=== PATIENT | female | born 1960 | race Caucasian/White ===

== ENCOUNTER → 2019-01-20 | Outpatient (CLI) | payer BC, OTHER ==
--- NOTE | 2019-01-20 15:16 | EXE ---
[facility] [address] [place] [address] STRESS ECHOCARDIOGRAM Name: CAROLBRENNA Room #: REG IRMA Faulkner#: [id number] ������������� Admission: 01/20/19 ������������� Attend Phys: Elgin Nino Discharge: ��� ������������� ��� Date of : 62 Date of Service: 01/20/19 1516 �� Report #: [id number] �������� ��������������������������������������������[id number] THIS REPORT FOR: //name// APPROVED REPORT Study performed: 01/20/2019 11:26:42 Exam: Stress Echocardiogram Indication: Hypertension, Pre-Operative CV evaluation Patient Location: Out-Patient Stress Nurse: Lizzie WYMAN Room #: Echo lab 2 Status: routine Ht: 5 ft 2 in HR: 77 bpm BP: 142/96 mmHg Rhythm: NSR Medical History Medical History: Arrhythmia, HTN Cardiac Risk Factors: HTN, Tobacco History (Former), FHX of CAD Procedure The patient underwent an Exercise Stress Test using the Serge Protocol. Blood pressure, heart rate, and EKG were monitored. An Echocardiogram was performed by sterile supply technician in four stages in quad fashion. At peak stress, four selected images were obtained and placed side by side with resting images for comparison. Stress Test Details Stress Test: Exercise stress testing was performed using a Serge protocol. HR Resting HR: 77 bpm Max Heart Rate (APMHR): 163 bpm Max HR Achieved: 169 bpm Target HR (85% APMHR): 138 bpm % of APMHR: 103 Recovery HR: 102 bpm HR response to stress: Normal HR response to stress BP Resting BP: 142/96 mmHg Max BP: 182/96 mmHg Recovery BP: 138/78 mmHg BP response to stress: Normal blood pressure response to [facility] [address] [address] STRESS ECHOCARDIOGRAM Name: BRENNA MEDINA Room #: [id number] ������������� Admission: 01/20/19 ������������� Attend Phys: Elgin Nino Discharge: ��� ������������� ��� Date of : 62 Date of Service: 01/20/19 1516 �� Report #: [id number] �������� ��������������������������������������������[id number] stress. ECG Resting ECG: Clear Stress ECG: Sinus Tachycardia Recovery ECG: Sinus Rhythm Clinical Reason for Termination: Maximal effort Exercise duration: 10 min 06 sec Highest Stage Achieved: Stage 4: 4.2 mph at 16% grade. Exercise capacity: 13.4 METs Overall Exercise Capacity for Age: Good Stress ECG Conclusion 1. subjectively negative for ischemia 2. electrocardiographically negative for ischemia 3. satisfactory functional capacity Pre-Stress Echo The resting Echocardiogram showed normal left ventricular contractility with an estimated Ejection Fraction of about >55%. Post-Stress Echo The stress Echocardiogram showed normal left ventricular contractility with an estimated Ejection Fraction of about 65-70%. Clinical Normal augmentation of myocardial wall segments using a 17 segment model. Conclusion Clinical Response: Non-ischemic Exercise Capacity: Average Stress ECG Response: Non-ischemic Stress Echo Images: Non-ischemic 1. low risk study Other Information Study Quality: Good <Conclusion> 1. low risk study ��������������������������������������������� <ELECTRONICALLY SIGNED> ���������������������������������������� By: Elgin Espino MD ��������������������������������������������� 01/20/19 1516 1516 1516 Elgin Espino MD /INF
== END ==
LOC: CV 11:20
DX: R00.2 Palpitations (principal); I10 Essential (primary) hypertension; E78.5 Hyperlipidemia, unspecified; Z88.5 Allergy status to narcotic agent; Z88.2 Allergy status to sulfonamides; Z88.0 Allergy status to penicillin; Z87.891 Personal history of nicotine dependence; Z82.49 Family history of ischemic heart disease and other diseases of the circulatory system